=== PATIENT | female | born 1935 | race Caucasian/White ===

== ENCOUNTER → 2017-05-23 | Outpatient (CLI) | payer MEDICARE, BC ==
--- NOTE | 2017-05-23 11:10 | XR ---
EXAMINATION TYPE: XR chest 2V DATE OF EXAM: 05/23/2017 HISTORY: J15 pneumonia. REFERENCE: NONE. FINDINGS: There are bilateral shoulder prostheses in place. There has been previous epigastric surger y. Lung volumes are prominent. Heart size is mildly prominent. There is some scarring or atelectasis at the right lung base. Lungs otherwise clear. Pleural spaces are clear. IMPRESSION: 1. COPD. 2. MILD CARDIOMEGALY. 3. SCARRING VERSUS ATELECTASIS, RIGHT LUNG BASE.
== END | disposition home or self-care (01) ==
LOC: RADXRMAIN 10:47
PROVIDERS: ATTEND Family Medicine
DX: J44.0 Chronic obstructive pulmonary disease with (acute) lower respiratory infection (principal); J18.9 Pneumonia, unspecified organism; I51.7 Cardiomegaly
CPT/HCPCS: 71020

== ENCOUNTER → 2017-09-05 | Outpatient (CLI) | payer MEDICARE, BC | END | disposition home or self-care (01) | LOC: RADECHMAIN 11:43 | PROVIDERS: ATTEND Family Medicine | DX: Z53.9 Procedure and treatment not carried out, unspecified reason (principal) ==

== ENCOUNTER → 2019-01-01 | Day surgery (SDC) | payer MEDICARE, BC ==
[~2019-01-01] MED LIST: ALPRAZolam 0.25 MG TAB PO PRN; ALPRAZolam 0.5 MG TAB PO PRN; ASPIRIN 325 MG TAB PO ONE; ASPIRIN 81 MG PO SCH; ATORVASTATIN 20 MG TAB PO SCH; ATORVASTATIN 80 MG TAB PO ONE; IOPAMIDOL-370 125ML BTL INJ ONE; LIDOCAINE 2% (PF) 20 MG/ML 2 ML VIAL SQ ONE; NEBIVOLOL 5 MG TAB PO SCH; NITROGLYCERIN SL TABS 0.4 MG TAB SUBLINGUAL PRN; PANTOPRAZOLE 40 MG TABLET PO SCH; RX INFO: IV CONTRAST WAS GIVEN 1 EACH MISC MISCELLANE PRN; SODIUM CHLORIDE 0.9% 1,000 ML IV SCH; SODIUM CHLORIDE 0.9% 1,000 ML in EMPTY BAG 1 BAG IV ONE; VERAPAMIL 2.5 MG/ML 2 ML AMP ONE; fentaNYL (PF) 50 MCG/ML 2 ML AMP IV ONE; fentaNYL (PF) 50 MCG/ML 2 ML AMP ONE
[2019-01-01 08:04] VITALS: TEMP 97.7
[2019-01-01] MEDS: MIDAZOLAM 2 MG/2 ML VIAL IV ONE ×2 (11:03→11:13)
[2019-01-01] MEDS: VERAPAMIL SYRINGE (5 MG/10 ML) INTRAARTER ONE ×3 (11:09→11:20)
--- NOTE | 2019-01-01 12:13 | CC ---
CARDIAC CATHETERIZATION REPORT Mrs. Thorpe is an 83-year-old female with no prior documented history of coronary artery disease who has been complaining of progressive dyspnea, has a history of hypertension and hyperlipidemia. She underwent myocardial perfusion imaging that raised the possibility of inducible ischemia. In view of that, recommendation was made regarding cardiac catheterization. The procedure as well as the risks and the complications were discussed with the patient who is in full understanding and agreement. PROCEDURE: Patient was brought to the optical laboratory manager in a fasting semi-sedated state after receiving fentanyl and Benadryl and achieving moderate conscious sedated state. Using Xylocaine anesthesia in the Seldinger technique, a 6-Hungarian sheath was introduced in the right radial artery. Selective right and left coronary angiography was performed using 5- Hungarian 3.5 bend left Priya and 4 bend right Priya catheter. Multiple views of the coronary artery including hemiaxial views were obtained. Following that, 5-Hungarian tight pigtail catheter was introduced in the left ventricle and a 30-degree VALENCIA view of the left ventricle was obtained. Following that, catheter and sheaths were removed. Hemostasis was obtained with deployment of a TR band. There was no immediate complication. Patient was returned to her room in stable condition. Of note, the patient received 3500 units of intravenous heparin as well as intra-arterial verapamil. FINDINGS: LEFT MAIN: This is a large-sized vessel bifurcating in the left circumflex and left anterior descending artery. Left main coronary artery has no evidence of high-grade stenosis. LEFT ANTERIOR DESCENDING ARTERY: This is a large-sized vessel reaching toward the apex with a wraparound apex segment giving rise to a large diagonal branch in mid segment. After the takeoff of the diagonal branch, there is a 40% to 50% plaque. The rest of the vessel has no high-grade stenosis. LEFT CIRCUMFLEX: This is a nondominant vessel, large in caliber giving rise to 2 obtuse marginal branches. The first obtuse marginal branch has a 20% to 30% plaque. The rest of the vessel has no high-grade stenosis. RIGHT CORONARY ARTERY: This is a large dominant vessel bifurcating into PDA and posterolateral segment and branches. The right coronary artery as well as branches have no evidence of high-grade stenosis. LEFT VENTRICULOGRAM: Left ventriculogram was performed in 30-degree VALENCIA view and revealed normal left ventricular size and systolic function. Ejection fraction 60%. There was no significant mitral regurgitation. HEMODYNAMICS: There was no gradient across the aortic valve. The left ventricular end- diastolic pressure is 8 to 10 mmHg. CONCLUSION: 1. Mild disease involving the LAD and left circumflex. 2. Normal left ventricular size and systolic function. RECOMMENDATION: In view of finding anatomy, I recommend continue medical therapy with aggressive coronary risk modifications that have been initiated. Those findings and recommendation were discussed with the patient and her family who are in full understanding and agreement. DURATION OF PROCEDURE: 26 minutes. MMODL / IJN: [id number] /
--- NOTE | 2019-01-01 12:19 | LTR ---
January 01, 2019 Re: Janet Corraldon Dear Dr. Perry: I had the opportunity to perform cardiac catheterization on Mrs. Thorpe at [facility] on the 01 of January and a full copy of the procedure note will be forwarded to you. In brief, she was found to have mild obstructive disease involving the LAD and the left circumflex with a preserved left ventricular size and systolic function. In view of the finding, I recommend to continue medical therapy with aggressive coronary risk modifications that have been initiated. Thank you again for allowing me the opportunity to participate in her care. Please feel free to call for any questions. Sincere yours, MD KAYLYNN AldridgeL / KELLENN: [phone] /
[2019-01-01 14:33] VITALS: RESP 18
[2019-01-01 14:39] VITALS: PULSE 68
[2019-01-01 15:34] VITALS: BP 174/74
== END | disposition home or self-care (01) ==
LOC: CATHCVL 07:34
PROVIDERS: ATTEND Internal Medicine Interventional Cardiology
DX: I25.10 Atherosclerotic heart disease of native coronary artery without angina pectoris (principal); I10 Essential (primary) hypertension; E78.2 Mixed hyperlipidemia; I35.1 Nonrheumatic aortic (valve) insufficiency; Z72.0 Tobacco use; Z79.82 Long term (current) use of aspirin; Z79.899 Other long term (current) drug therapy
CPT/HCPCS: 93458; C1894; C1769; J2250; J3010; J1644; J2001; Q9967

== ENCOUNTER 2023-11-29 08:56 | Emergency (ER) | payer MEDICARE, BC ==
[2023-11-29 09:20] VITALS: TEMP 98.9
[2023-11-29] MEDS ORDERED: DILTIAZEM 125 MG in SODIUM CHLORIDE 0.9% 100 ML IV SCH (09:45)
--- NOTE | 2023-11-29 09:45 | ED ---
General Adult HPI - General Chief complaint: Chest Pain Stated complaint: chest pain Time Seen by Provider: 11/29/23 09:24 Source: patient, family, RN notes reviewed Mode of arrival: wheelchair Limitations: no limitations - History of Present Illness Initial comments: Patient is a pleasant 88-year-old female presenting to the emergency department with concerns for chest discomfort. Patient has been having some symptoms are the past couple weeks, worse this morning. Discomfort is difficult to describe, mild at this time. Patient does have associated palpitations and dyspnea. Patient does have history of A. fib and only takes an aspirin. Patient denies other blood thinners. Patient has had increased leg edema. Patient did have a fall around 5 days ago. Patient did strike her face. No loss of consciousness. No weakness or confusion. - Related Data Home Medications Medication Instructions Recorded Confirmed Aspirin [Adult Low Dose Aspirin EC] 81 mg PO HS 12/28/18 11/29/23 Furosemide [Lasix] 20 mg PO DAILY 11/29/23 11/29/23 Losartan Potassium [Cozaar] 100 mg PO DAILY 11/29/23 11/29/23 Metoprolol Tartrate [Lopressor] 25 mg PO BID 11/29/23 11/29/23 Ondansetron [Zofran] 4 mg PO Q8HR PRN 11/29/23 11/29/23 Pramipexole [Mirapex] 0.25 mg PO BID PRN 11/29/23 11/29/23 Allergies Allergy/AdvReac Type Severity Reaction Status Date / Time No Known Allergies Allergy Verified 11/29/23 11:04 Review of Systems ROS Statement: Those systems with pertinent positive or pertinent negative responses have been documented in the HPI. ROS Other: All systems not noted in ROS Statement are negative. Constitutional: Denies: fever Eyes: Denies: eye pain ENT: Denies: ear pain Respiratory: Reports: dyspnea Cardiovascular: Reports: chest pain, palpitations Endocrine: Denies: fatigue Gastrointestinal: Denies: abdominal pain Past Medical History Past Medical History: GERD/Reflux, Hyperlipidemia, Hypertension, Osteoarthritis (OA) Additional Past Medical History / Comment(s): CURRENT SYMPTOMS: DIZZINESS,SOB,NAUSEA. History of Any Multi-Drug Resistant Organisms: None Reported Past Surgical History: Back Surgery, Cholecystectomy, Heart Catheterization, Hysterectomy Additional Past Surgical History / Comment(s): LOWER BACK X2. BILATERAL SHOULDER ARTHROPLASTY Past Anesthesia/Blood Transfusion Reactions: Postoperative Nausea & Vomiting (PONV) Past Psychological History: No Psychological Hx Reported Smoking Status: Former smoker Past Alcohol Use History: None Reported Past Drug Use History: None Reported General Exam Limitations: no limitations General appearance: alert, in no apparent distress Head exam: Present: normocephalic, other (Facial ecchymosis) Eye exam: Present: normal appearance, PERRL, EOMI ENT exam: Present: normal oropharynx Neck exam: Present: normal inspection. Absent: meningismus Respiratory exam: Present: normal lung sounds bilaterally Cardiovascular Exam: Present: tachycardia, irregular rhythm GI/Abdominal exam: Present: soft. Absent: tenderness Extremities exam: Present: pedal edema. Absent: calf tenderness Neurological exam: Present: alert Psychiatric exam: Present: normal affect, normal mood Skin exam: Present: other (Facial ecchymosis) Course Vital Signs 11/29/23 08:58 Temperature 98.9 F Pulse Rate 119 H Respiratory 20 Rate Blood Pressure 130/67 O2 Sat by Pulse 94 L Oximetry EKG Findings - EKG Results: EKG: interpreted by MOHIT, normal axis, normal QRS (Minimal lateral ST depression.) EKG shows: tachycardia, atrial fibrillation Medical Decision Making - Medical Decision Making Was pt. sent in by a medical professional or institution (, PA, EVENT MANAGER, urgent care, hospital, or snf...) When possible be specific @ -No Did you speak to anyone other than the patient for history (EMS, parent, family, police, friend...)? What history was obtained from this source @ -Family is present and helps right history as patient is slightly a poor historian Did you review nursing and triage notes (agree or disagree)? Why? @ -I reviewed and agree with nursing and triage notes Were old charts reviewed (outside hosp., previous admission, EMS record, old EKG, old radiological studies, urgent care reports/EKG's, snf records)? Report findings @ -Previous chest x-ray reviewed Differential Diagnosis (chest pain, altered mental status, abdominal pain women, abdominal pain men, vaginal bleeding, weakness, fever, dyspnea, syncope, headache, dizziness, GI bleed, back pain, seizure, CVA, palpatations, mental health, musculoskeletal)? @ -Differential Chest Pain: Stable Angina, Unstable Angina, STEMI, NSTEMI Aortic Dissection, Pneumothorax, Musculoskeletal, Esophageal Spasm GERD, Cholecystitis, Pancreatitis, Zoster, this is not meant to be an all-inclusive list. EKG interpreted by me (3pts min.). @ -As above X-rays interpreted by me (1pt min.). @ -Chest x-ray shows cardiomegaly and increased interstitial changes consistent with CHF CT interpreted by me (1pt min.). @ -Computed tomography scan of the brain shows hyperdense area posterior U/S interpreted by me (1pt. min.). @ -None done What testing was considered but not performed or refused? (CT, X-rays, U/S, labs )? Why? @ -None What meds were considered but not given or refused? Why? @ -None Did you discuss the management of the patient with other professionals (professionals i.e. , PA, EVENT MANAGER, lab, RT, psych nurse, social media campaign manager, dental technologist, teacher, code enforcement officer, case resource manager)? Give summary @ -Case was discussed with practitioner Nery Emerson as well as Dr. Hinds. He does request transfer secondary to no GI coverage and questionable intercranial hemorrhage Was smoking cessation discussed for >3mins.? @ -No Was critical care preformed (if so, how long)? @ -32 minutes critical care time provided Were there social determinants of health that impacted care today? How? (Homelessness, low income, unemployed, alcoholism, drug addiction, transportation, low edu. Level, literacy, decrease access to med. care, group home, rehab)? @ -No Was there de-escalation of care discussed even if they declined (Discuss DNR or withdrawal of care, Hospice)? DNR status @ -No What co-morbidities impacted this encounter? (DM, HTN, Smoking, COPD, CAD, Cancer, CVA, ARF, Chemo, Hep., AIDS, mental health diagnosis, sleep apnea, morbid obesity)? @ -None Was patient admitted / discharged? Hospital course, mention meds given and route, prescriptions, significant lab abnormalities, going to OR and other pertinent info. @ -Patient reevaluated. Patient is resting comfortably in bed. Patient has chest pain and dyspnea. Chest x-ray with CHF. Patient is in A. fib with tachycardia. Hemoglobin low at 5.3 with Hemoccult-positive. Likely GI hemorrhage. Computed tomography scan unlikely but questionable intercranial hemorrhage. Patient will be transferred. Patient and family were updated. Family also adds that patient had the questionable syncopal episode when she fell 5 days ago and was not just a regular fall. Undiagnosed new problem with uncertain prognosis? @ -No Drug Therapy requiring intensive monitoring for toxicity (Heparin, Nitro, Insulin, Cardizem)? @ -Patient will receive to need a blood transfusion which will require monitoring. Patient also requires monitoring for Cardizem drip. Were any procedures done? @ -No Diagnosis/symptom? @ -Syncope, A. fib, GI hemorrhage with anemia, possible intercranial hemorrhage, CHF Acute, or Chronic, or Acute on Chronic? @ -Acute, acute on chronic, acute, acute, acute on chronic Uncomplicated (without systemic symptoms) or Complicated (systemic symptoms)? @ -GI hemorrhage is complicated with anemia Side effects of treatment? @ -No Exacerbation, Progression, or Severe Exacerbation? @ -No Poses a threat to life or bodily function? How? (Chest pain, USA, CO, pneumonia, PE, COPD, DKA, ARF, appy, cholecystitis, CVA, Diverticulitis, Homicidal, Suicidal, threat to staff... and all critical care pts) @ -No Freddie Avila closer transferred. Case discussed with Dr. Bernabe at [facility] will accept transfer. - Lab Data Result diagrams: 11/29/23 11:58 11/29/23 11:58 Lab Results 11/29/23 11/29/23 11/29/23 Range/Units 11:58 11:58 11:58 WBC 7.3 (3.8-10.6) k/uL RBC 2.62 L (3.80-5.40) m/uL Hgb 5.3 L* (11.4-16.0) gm/dL Hct 18.5 L* (34.0-46.0) % MCV 70.6 L (80.0-100.0) fL MCH 20.3 L (25.0-35.0) pg MCHC 28.7 L (31.0-37.0) g/dL RDW 18.4 H (11.5-15.5) % Plt Count 305 (150-450) k/uL MPV 8.4 Neutrophils % 79 % Lymphocytes % 10 % Monocytes % 8 % Eosinophils % 1 % Basophils % 0 % Neutrophils # 5.8 (1.3-7.7) k/uL Lymphocytes # 0.8 L (1.0-4.8) k/uL Monocytes # 0.6 (0-1.0) k/uL Eosinophils # 0.1 (0-0.7) k/uL Basophils # 0.0 (0-0.2) k/uL Hypochromasia Marked Poikilocytosis Moderate Anisocytosis Slight Microcytosis Marked PT 11.5 (10.0-12.5) sec INR 1.1 (<1.2) APTT 21.2 L (22.0-30.0) sec Sodium 136 L (137-145) mmol/L Potassium 4.2 (3.5-5.1) mmol/L Chloride 102 (98-107) mmol/L Carbon Dioxide 25 (22-30) mmol/L Anion Gap 9 mmol/L BUN 21 H (7-17) mg/dL Creatinine 0.85 (0.52-1.04) mg/dL Est GFR (CKD-EPI)AfAm 71 (>60 ml/min/1.73 sqM) Est GFR (CKD-EPI)NonAf 61 (>60 ml/min/1.73 sqM) Glucose 104 H (74-99) mg/dL Calcium 8.1 L (8.4-10.2) mg/dL Magnesium 2.1 (1.6-2.3) mg/dL Total Bilirubin 0.6 (0.2-1.3) mg/dL AST 35 (14-36) U/L ALT 37 H (4-34) U/L Alkaline Phosphatase 119 (38-126) U/L Troponin I (0.000-0.034) ng/mL NT-Pro-B Natriuret Pep 4690 pg/mL Total Protein 6.0 L (6.3-8.2) g/dL Albumin 3.4 L (3.5-5.0) g/dL TSH 1.880 (0.465-4.680) mIU/L Stool Occult Blood (Negative) 11/29/23 11/29/23 Range/Units 11:58 13:24 WBC (3.8-10.6) k/uL RBC (3.80-5.40) m/uL Hgb (11.4-16.0) gm/dL Hct (34.0-46.0) % MCV (80.0-100.0) fL MCH (25.0-35.0) pg MCHC (31.0-37.0) g/dL RDW (11.5-15.5) % Plt Count (150-450) k/uL MPV Neutrophils % % Lymphocytes % % Monocytes % % Eosinophils % % Basophils % % Neutrophils # (1.3-7.7) k/uL Lymphocytes # (1.0-4.8) k/uL Monocytes # (0-1.0) k/uL Eosinophils # (0-0.7) k/uL Basophils # (0-0.2) k/uL Hypochromasia Poikilocytosis Anisocytosis Microcytosis PT (10.0-12.5) sec INR (<1.2) APTT (22.0-30.0) sec Sodium (137-145) mmol/L Potassium (3.5-5.1) mmol/L Chloride (98-107) mmol/L Carbon Dioxide (22-30) mmol/L Anion Gap mmol/L BUN (7-17) mg/dL Creatinine (0.52-1.04) mg/dL Est GFR (CKD-EPI)AfAm (>60 ml/min/1.73 sqM) Est GFR (CKD-EPI)NonAf (>60 ml/min/1.73 sqM) Glucose (74-99) mg/dL Calcium (8.4-10.2) mg/dL Magnesium (1.6-2.3) mg/dL Total Bilirubin (0.2-1.3) mg/dL AST (14-36) U/L ALT (4-34) U/L Alkaline Phosphatase (38-126) U/L Troponin I <0.012 (0.000-0.034) ng/mL NT-Pro-B Natriuret Pep pg/mL Total Protein (6.3-8.2) g/dL Albumin (3.5-5.0) g/dL TSH (0.465-4.680) mIU/L Stool Occult Blood Positive H (Negative) Critical Care Time Critical Care Time: Yes Total Critical Care Time: 32 Disposition Clinical Impression: Chest pain, CHF (congestive heart failure), GI hemorrhage, Atrial fibrillation with RVR, Syncope Disposition: OTHER INSTITUTION NOT DEFINED Is patient prescribed a controlled substance at d/c from ED?: No Referrals: Brijesh Perry DO [Primary Care Provider] - 1-2 days Time of Disposition: 13:50 - Out of Hospital Transfer - Req. Specs Out of Hospital Transfer - Requested Specifics: Other Emergency Center
--- NOTE | 2023-11-29 11:00 | XR ---
EXAMINATION TYPE: XR chest 2V DATE OF EXAM: 11/29/2023 10:56 AM CLINICAL INDICATION:Female, 88 years old with history of dysrhythmia; COMPARISON: Chest radiographs from 05/23/2017. TECHNIQUE: XR chest 2V Frontal and lateral views of the chest. FINDINGS: Lungs/Pleura: There is flattening of the diaphragm with increased lucency of the lungs. No evidence o f pneumothorax, pleural effusion or focal consolidation. Blunting of the costophrenic angles is prese nt. Pulmonary vascularity: Pulmonary vascular congestion. Heart/mediastinum: Cardiomediastinal silhouette is enlarged and stable. Musculoskeletal: No acute osseous pathology. Other findings: None IMPRESSION: 1. Cardiomegaly, pulmonary vascular congestion and bilateral pleural effusions. Correlate with BNP f or congestive heart failure. 2. COPD.
--- NOTE | 2023-11-29 11:38 | CT ---
EXAMINATION TYPE: CT brain wo con DATE OF EXAM: 11/29/2023 HISTORY: Fall, contusion to bilateral orbits CT DLP: 767 mGycm. Automated Exposure Control for Dose Reduction was Utilized. TECHNIQUE: CT scan of the head is performed without contrast. COMPARISON: Prior CT brain 2010. FINDINGS: There is no acute intracranial hemorrhage or midline shift definitively identified. Linea r 5 mm hyperdensity just right of midline posteriorly axial image 47 favors dural calcification is ne w from prior study There is moderate diffuse ventricular and sulcal prominence now identified. There is mild to moderate low-attenuation in the deep and periventricular white matter now identified. Angelito ateral aphakia is present. Small focal left frontal acute/subacute scalp hematoma axial image 48. The visualized calvarium is intact. The paranasal sinuses are clear. IMPRESSION: There is small acute/subacute left frontal scalp hematoma on current study. There is 5 m m linear hyperdensity superior posterior intracranial region, I favor new dural calcification but sma ll focus of new acute intracranial hemorrhage not entirely excluded. Short-term follow-up CT and/or M RI can be performed to further evaluate. No midline shift. No hydrocephalus. Diffuse cerebral atrophy and chronic small vessel ischemic change shows interval progression from [address] CT.
[2023-11-29 12:28] LABS: Anisocytosis Slight; Basophils % (A) 0 %; Eosinophils # (A) 0.1 k/uL (0-0.7); Eosinophils % (A) 1 %; Hypochromasia Marked; Lymphocytes # (A) 0.8 k/uL (1.0-4.8); Lymphocytes % (A) 10 %; MCH 20.3 pg (25.0-35.0); MCHC 28.7 g/dL (31.0-37.0); MCV 70.6 fL (80.0-100.0); Mean Platelet Volume 8.4; Microcytosis Marked; Monocytes # (A) 0.6 k/uL (0-1.0); Monocytes % (A) 8 %; Neutrophils # (A) 5.8 k/uL (1.3-7.7); Neutrophils % (A) 79 %; Platelet Count 305 k/uL (150-450); Poikilocytosis Moderate; RBC 2.62 m/uL (3.80-5.40); RDW 18.4 % (11.5-15.5); WBC 7.3 k/uL (3.8-10.6)
[2023-11-29 12:31] LABS: HGB 5.3 gm/dL (11.4-16.0)
[2023-11-29 12:32] LABS: HCT 18.5 % (34.0-46.0)
[2023-11-29 12:34] LABS: ALT 37 U/L (4-34); AST 35 U/L (14-36); African American GFR (CKD) 71 (>60 ml/min/1.73 sqM); Albumin 3.4 g/dL (3.5-5.0); Alkaline Phosphatase 119 U/L (38-126); Anion Gap 9 mmol/L; Blood Urea Nitrogen 21 mg/dL (7-17); Calcium 8.1 mg/dL (8.4-10.2); Carbon Dioxide 25 mmol/L (22-30); Chloride 102 mmol/L (98-107); Glucose 104 mg/dL (74-99); Magnesium 2.1 mg/dL (1.6-2.3); Non-African American GFR(CKD) 61 (>60 ml/min/1.73 sqM); Potassium 4.2 mmol/L (3.5-5.1); Sodium 136 mmol/L (137-145); Total Bilirubin 0.6 mg/dL (0.2-1.3)
[2023-11-29 12:41] LABS: NT-Pro-B-Type Natriuretic Pept 4690 pg/mL
[2023-11-29 12:53] LABS: INR 1.1 (<1.2); Prothrombin Time 11.5 sec (10.0-12.5)
[2023-11-29 13:08] LABS: Partial Thromboplastin Time 21.2 sec (22.0-30.0)
[2023-11-29] MEDS ORDERED: PANTOPRAZOLE 40 MG/10 ML VIAL IVP STA (13:18)
[2023-11-29 15:19] VITALS: BP 125/76; PULSE 106; RESP 24
== END 2023-11-29 15:38 | disposition other institution (70) ==
LOC: EC 08:56
DX: S00.83XA Contusion of other part of head, initial encounter (principal); I48.91 Unspecified atrial fibrillation; I11.0 Hypertensive heart disease with heart failure; I50.9 Heart failure, unspecified; K92.2 Gastrointestinal hemorrhage, unspecified; D64.9 Anemia, unspecified; R55 Syncope and collapse; R00.0 Tachycardia, unspecified; Z79.82 Long term (current) use of aspirin; Z79.899 Other long term (current) drug therapy; Z87.891 Personal history of nicotine dependence; Z90.49 Acquired absence of other specified parts of digestive tract; W19.XXXA Unspecified fall, initial encounter
CPT/HCPCS: 36415; 93005; 86900; 86901; 83880; 80053; 83735; 84443; 84484; 85025; 85610; 85730; 86850; 86920; 82272; 71046; 70450; 99291; 96365; 96366 ×2; 96375; C9113